=== PATIENT | male | born 1935 | race Caucasian/White ===

== ENCOUNTER 2017-11-11 05:15 | Day surgery (SDC) | payer OTHER ==
[~2017-11-11 05:15] MED LIST: ARICEPT10 MG PO; ASA81 MG PO; AVAPRO300 MG PO; CALTRATE 600 +1 EACH PO; CYMBALTA60 MG PO; DILTIAZEM 24HR240 MG PO; HUMALOG100 UNIT/1; HYDRALAZINE HCL50 MG PO; METFORMIN HCL500 MG PO; PRAVASTATIN SOD40 MG PO; [UNRECOGNIZED DRUG - OTHER] PO
== END 2017-11-11 10:30 | disposition home or self-care (01) ==
LOC: AMB-ENDOS 05:15
DX: D12.4 Benign neoplasm of descending colon (principal); K52.89 Other specified noninfective gastroenteritis and colitis